=== PATIENT | female | born 1980 | race Caucasian/White ===

== ENCOUNTER 2024-05-30 19:21 | Emergency (ER) | payer OTHER, SELFPAY ==
[2024-05-30 19:25] VITALS: BP 137/91
--- NOTE | 2024-05-30 21:43 | ED.GENMED ---
History of Present Illness
General
Chief Complaint: Anxiety
Source: patient
Exam Limitations: none
Time Seen by Provider: 05/30/24 20:50
History of Present Illness
History of Present Illness:
This is 43 year old female that comes in with c/o needing to sleep. State that she has anxiety and depression. States that for the past 6 weeks she has been on medication and her feeling come and go. 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
felt overwhelmed and she didn't want to teach anymore. States that she has had intrusive thoughts but will not act on any of them. States that she just can't sleep. States that she was to start a Partial program on Monday but someone helped her
get a Bed at [facility] in the morning. States that she did see her PCP and she was given Ambien to help her sleep. States that she has a headache. Denies any fever, chills, chest pain, SOB, abd pain, nausea, vomiting, diarrhea, dizziness, urinary
burning.
Past History
Past History
ED Past Medical History: HTN, Hypercholesterolemia and Other (ROBISON, Turners Syndrome. )
ED Past Surgical History: Other (Myringotomy tubes, Adenoids removed, Septoplasty, )
Social History
Tobacco: Non-smoker
Alcohol: None
Personal:
Living: with family
Employment: Employed
Review of Systems
Review of Systems
All Other Systems: ROS reviewed and negative except as documented in HPI and ROS
Constitutional: Reports no symptoms; Denies fever or chills
EENT: Reports no symptoms; Denies mouth pain
Respiratory: Reports no symptoms; Denies cough or trouble breathing
Cardiac: Reports no symptoms; Denies chest pain
ABD/GI: Reports no symptoms; Denies abdominal pain, nausea, vomiting or diarrhea
: Reports no symptoms; Denies dysuria, frequency or urgency
Musculoskeletal: Reports no symptoms
Skin: Reports no symptoms
Neurological: Reports headache; Denies dizzy
Psychiatric: Reports depression, anxiety and other (Unable to sleep)
Phy Exam
General Physical Exam
General Presentation: well appearing and no apparent distress
General age: appears stated age
General Skin: warm and dry
General Habitus: normal
General Mental: alert
General Hydration: appears well hydrated
ENT Exam
ENT Exam: TM's normal, pharynx normal and neck supple
Eye Exam
Eye Exam: EOMI
Cardiovascular Exam
Cardiovascular Exam: regular rate/rhythm, no edema, no murmur and normal peripheral pulses
Pulmonary Exam
Pulmonary Exam: lungs clear, no respiratory distress, no rales, chest non tender, no crackles, no rhonchi, no wheezing and no cough
Gastrointestinal Exam
Gastrointestinal Exam: normal bowel sounds, non tender, soft, no organomegaly, no pulsatile mass and non distended
Musculoskeletal Exam
Musculoskeletal Exam: full ROM and no edema
Skin Exam
Skin Exam: normal color, warm/dry, no rash and no petechia
Psychiatric Exam
Psychiatric Exam: anxious
Course
Vital Signs
Initial and Last Documented VS:
Initial Vital Signs
Temp Pulse Resp BP Pulse Ox
97.7 F 85 19 137/91 97
05/30/24 19:25 05/30/24 19:25 05/30/24 19:25 05/30/24 19:25 05/30/24 19:25
Last Documented Vital Signs
Temp Pulse Resp BP Pulse Ox
97.7 F 85 19 137/91 97
05/30/24 19:25 05/30/24 19:25 05/30/24 19:25 05/30/24 19:25 05/30/24 19:25
MDM/Problems Addressed
Differential Diagnosis Includes:
Anxiety, insomnia
MDM/Problems Addressed:
This is a 43 year old female that comes in with c/o not being able to sleep. Patent has a bed at [facility] tomorrow morning.
Patient had already spoke with Crisis. Explained to patient that she can't be admitted just because she can't sleep. Patient was given Ambien by her PCP. Will have patient take 10mg tonight and follow up at [facility]. Patient to return with any
concerns.
Chronic conditions affecting care: Psychiatric illness
Acute Exacerbation and/or Progression of Chronic Illness: Psychiatric illness
*Pulse Oximetry
Patient hypoxic: no
*EKG
Interpreted by ED Provider?: NA
Rate: EKG- N/A
*[employer] Interpretation
Rate: [employer]- N/A
*Critical Care Note
Total Time (30-74mins, 75-104mins- exclusive of procedures): Not Applicable
ED Attending Note
-
Portions of this chart may have been created with voice recognition software.� Occasional wrong word or��sound alike� substitutions may have occurred due to the inherent limitations of voice recognition software.
Discharge Plan
Departure
Patient Disposition: Home (Routine Discharge)
Date of Disposition: 05/30/24
Time of Disposition: 21:50
Patient with high blood pressure during this ER visit?: Yes
Condition: Good
Covid-19: Not Applicable
Discharge Problem:
Insomnia
Instructions: Insomnia, Anxiety, Adult (DC), BLOOD PRESSURE
Activity Restrictions/Additional Instructions:
As discussed, you may take Ambien 10mg tonight. Follow up at [facility] tomorrow as scheduled. IF YOU HAVE ANY OTHER CONCERNS PLEASE RETURN TO THE EMERGENCY ROOM
Interventions
Interventions:
*Risk Screen - Suicide Last Done: 05/30/24 19:25
*General Assessment Last Done: 05/30/24 19:25
*Neglect/Abuse Screening Last Done: 05/30/24 19:25
*ED COVID-19 Vaccine History Last Done: 05/30/24 19:25
Discharge Date and Time
Print Language: AZERI
[2024-05-30 22:00] VITALS: BP 139/90
== END 2024-05-30 22:10 | disposition home or self-care (01) ==
LOC: EMR 19:21
PROVIDERS: EMERGENCY PHYSICIAN Emergency Medicine; FAMILY PHYSICIAN Nurse Practitioner Adult Health
DX: G47.00 Insomnia, unspecified (principal); F41.9 Anxiety disorder, unspecified; E78.00 Pure hypercholesterolemia, unspecified; I10 Essential (primary) hypertension; Z79.899 Other long term (current) drug therapy
CPT/HCPCS: 99283